=== PATIENT | female | born 1940 | race Caucasian/White ===

== ENCOUNTER → 2018-08-15 23:44 | Outpatient (REF) | payer MEDICARE, SELFPAY ==
[2018-08-16 00:13] LABS: Microscopic, Urine URINE MICROSCOPIC (MICROSCOPIC)
[2018-08-16 00:17] LABS: Appearance,Urine CLOUDY (Clear); Bilirubin,Urine Negative (Negative); Blood, Urine Negative (Negative); Color,Urine YELLOW (Yellow); Glucose,Urine (UA) Negative (Negative); Ketones,Urine Negative (Negative); Leukocyte Esterase,Urine Negative (Negative); Nitrate,Urine POSITIVE (Negative); Protein,Urine Negative (Negative); Specific Gravity, Urine 1.025 (1.005-1.030); Urobilinogen,Urine 0.2 EU/dl (0.2)
[2018-08-16 00:23] LABS: Bacteria,Urine 4+ /lpf
== END ==
LOC: LAB 23:44
PROVIDERS: Visit Provider Internal Medicine Adolescent Medicine
DX: N39.0 Urinary tract infection, site not specified (principal)
CPT/HCPCS: 81001; 87086; 87088; 87186

== ENCOUNTER → 2019-02-25 10:42 | Outpatient (CLI) | payer MEDICARE, SELFPAY ==
--- NOTE | 2019-02-25 10:53 | FL_ITS ---
FL barium swallow modified INDICATION: ITS.REASON: DYSPHAGIA. Difficulty swallowing with questionable aspiration history. TECHNIQUE & FINDINGS: Study performed conjunction with speech pathologist Bernie arambula. 1 minute 39 seconds fluoroscopy 5.44 MGY Patient study the lateral projection with video esophagram recording. Various barium consistencies utilized to study swallowing mechanism. Oral phase. Mild impairment. Patient also had difficulty determining appropriate amount of food and draped in place in her mouth which does present a safety concern. Pharyngeal phase. Penetration of thin and thick nectar liquids into the laryngeal vestibule. No cough. There is some mild impairment of epiglottic coverage of the airway contributing to the above. Thin barium from spoon cup, and with straw: Larger volume demonstrated penetration Larger volume [place] thick liquid also demonstrated penetration. However honey, pudding, puree consistencies were better tolerated with no notable penetration. IMPRESSION:. Patient demonstrated penetration into the laryngeal vestibule on with larger volume thin liquid and nectar liquid consistencies. However improvement was seen with honey consistency . Satisfactory swallowing with pudding and puree Please see review recommendations from speech pathology
--- NOTE | 2019-02-25 12:53 | HMH.SLMBS2 ---
Speech & Language Evaluation Speech/Language Mod Barium Swallow Start: 02/25/19 12:41 Freq: once Status: Complete Protocol: Document 02/25/19 12:41 MARSHA (Rec: 02/25/19 12:47 SARIBISIMINO [id number]) MBS Recommendations Diet Dietary Recommendations Pureed Honey Liquids Comment No straw Treatment/Strategies Strategy/Precaution Recommend Sitting Upright (90 deg) Mod Barium Swallow Impressions Summary and Impressions Oral Phase Impression Mild Impairment Oral Phase Summary edentulous; Pharyngeal Phase Impression Moderate Impairment Pharyngeal Phase Summary Penetration of think and nectar thick liquids; no cough . Speech/Language MBS Assessment/Goals/Plan Assessment Date of Evaluation: 02/25/19 Evaluation Type Initial Certification Assessment/Problems Dysphagia Does Patient Qualify for Service Yes Qualify/Failure Comment Speech therapy at [facility] should be consulted to determine therapy needs. Recommendations PHYSICIAN CERTIFICATION: The specified therapy services are required, authorized, and reviewed every 30 days. Diet Recommendations Dysphagia Pureed Liquid Type Recommendations Honey Consistency SL Swallow Guidelines High aspiration risk Dysphagia Swallow Precautions/Strategies Sitting Upright (90 deg) No Straw Small Bites and Sips Plan Pt/Guardian verbally ack understanding No of dx/prognosis/goals Pt/Guardian verbally ack understanding No of/consent to tx prog G -code Required Yes G-CODES ST Current Status [id number] ST Current Status Modifier CJ-At least 20% but less than 40% impaired, limited or restricted ST Goal Status [id number] ST Goal Status Modifier CJ-At least 20% but less than 40% impaired, limited or restricted Education Instructions provided Note was written to take back to [facility] by nursing clinical director that accompanied her today. Pt/Caregiver able to recall information Unable to ind. understand Reinforcement needed Yes Mod Barium Swallow Setup Exam Setup Radiologist Patel Alireza Level of Consciousness Awake Alert Disoriented Combative Restless Position (degrees) 90 Mod Barium Swallow-Lat View Oral Phase Labial Closure
== END ==
PROVIDERS: PCP Internal Medicine Adolescent Medicine; Visit Provider Internal Medicine Adolescent Medicine
DX: R13.10 Dysphagia, unspecified (principal)
CPT/HCPCS: 70371; 92611

== ENCOUNTER 2019-04-24 08:40 | Observation (INO) ==
--- NOTE | 2019-04-24 08:48 | Emergency Department Note ---
ED Disposition Clinical Impression: Altered mental status Qualifiers: Altered mental status type: unspecified Qualified Code(s): R41.82 - Altered mental status, unspecified UTI (urinary tract infection) Qualifiers: Urinary tract infection type: acute cystitis Hematuria presence: with hematuria Qualified Code(s): N30.01 - Acute cystitis with hematuria Disposition: Admitted as Observation Condition on Discharge: Good - Critical Care Critical Care Time: No Attestation: On , the high probability of a clinically significant, sudden or life threatening deterioration of the following system(s) required my full and direct attention, intervention and personal management. The time I documented below is in addition to time spent performing reported procedures but includes the f ollowing listed in this critical care notation. Medical Decision Making - Medical Records Medical records reviewed: Yes: I reviewed the patient's medical records. - [place] Inquiry Pt receiving controlled substance: No Vital Signs: 04/24/19 08:41 04/24/19 09:18 04/24/19 09:54 Temperature 98.0 F Temperature Source Oral Pulse Rate [Right Radial] 89 83 88 Respiratory Rate 18 18 Blood Pressure [Left Arm] 112/58 L Blood Pressure [Right Arm] 147/86 H 145/88 H Blood Pressure Mean [Left Arm] 76 Blood Pressure Mean [Right Arm] 106 107 Blood Pressure Source [Left Arm] Automatic Cuff Blood Pressure Source [Right Arm] Automatic Cuff Automatic Cuff Blood Pressure Position [Left Arm] Sitting Blood Pressure Position [Right Arm] Sitting Sitting 02 Sat by Pulse Oximetry 95 96 95 Oxygen Delivery Method Room Air Room Air Room Air 04/24/19 11:45 04/24/19 11:58 04/24/19 12:37 Temperature Temperature Source Pulse Rate [Right Radial] 90 Respiratory Rate Blood Pressure [Left Arm] 110/75 105/72 L Blood Pressure [Right Arm] Blood Pressure Mean [Left Arm] 86 83 Blood Pressure Mean [Right Arm] Blood Pressure Source [Left Arm] Automatic Cuff Automatic Cuff Blood Pressure Source [Right Arm] Blood Pressure Position [Left Arm] Supine Blood Pressure Position [Right Arm] 02 Sat by Pulse Oximetry 98 Oxygen Delivery Method Room Air - Lab Data Lab results reviewed: Yes: I reviewed the patient's lab results. Lab Results 04/24/19 09:25: WBC 7.6, RBC 4.44, Hgb 12.6, Hct 38.1, MCV 85.7, MCH 28.3, MCHC 33.0, RDW 13.9, Plt Count 293, MPV 6.9 L, Neut % (Auto) 79.3, Lymph % (Auto) 16.0, [place] % (Auto) 2.8, Eos % (Auto) 1.3, Baso % (Auto) 0.5, Neut # (Auto) 6.0, Lymph # (Auto) 1.2, [place] # (Auto) 0.2, Eos # (Auto) 0.1, Baso # (Auto) 0.0 04/24/19 09:25: Sodium 134 L, Potassium 4.1, Chloride 95 L, Carbon Dioxide 29, Anion Gap 14.1, BUN 18, Creatinine 0.79, Estimated Creat Clear 35, Estimated GFR 70, Est GFR ( Amer) 85, Glucose 111 H, Calcium 9.3, Total Bilirubin 0.4, AST 20, ALT 20, Alkaline Phosphatase 104, Troponin I < 0.02, Total Protein 8.5 H , Albumin 4.1, Globulin 4.4 H, Albumin/Globulin Ratio 0.9 L 04/24/19 09:25: PT 10.8, INR 1.04 04/24/19 09:50: Urine Color Yellow, Urine Appearance Cloudy, Urine pH 7.0, Ur Specific [place] 1.015, Urine Protein Trace, Urine Glucose (UA) Negative, Urine Ketones Negative, Urine Blood Trace-l, Urine Nitrate Positive, Urine Bilirubin Negative, Urine Urobilinogen 0.2, Ur Leukocyte Esterase 3+ A, Urine WBC Tntc, Ur Transition Epith Cell Occ, Ur Renal Epithelial Cell Occasional, Amorphous Sediment 4+, Urine Bacteria 4+, Hyaline Casts Occasional Result diagrams: 04/24/19 09:25 04/24/19 09:25 Orders (Tests/Meds): ED MEDICATIONS Discontinued Medications Generic Name Dose Route Start Last Admin Trade Name Freq PRN Reason Stop Dose Admin Ceftriaxone Sodium 1,000 mg 04/24/19 10:48 04/24/19 11:37 Rocephin 250mg Vial IM 04/24/19 10:49 1,000 mg ONCE ONE Administration Protocol Haloperidol Lactate 2 mg 04/24/19 10:47 04/24/19 10:55 Haldol 5mg/Ml Vial IM 04/24/19 10:48 2 mg ONCE ONE Administration Lidocaine HCl 0.9 ml 04/24/19 10:48 04/24/19 11:37 Lidocaine 1% 10ml Mdv IM 04/24/19 10:49 2.1 mg ONCE ONE Administration Lorazepam 1 mg 04/24/19 10:47 04/24/19 10:56 Ativan 2mg/Ml Vial IM 04/24/19 10:48 1 mg ONCE ONE Administration ORDERS Category Date Time Status Urine Culture Stat Micro 04/24/19 09:50 Received - Radiology Data #1 Image(s): Chest Image Reviewed: Yes I have reviewed radiologist's interpretation - CT Data CT Scan: Head Time Received: 12:46 (dilated ventricles, no bleed) ED CT Reviewed: Yes: I have viewed the radiologist's interpretation Medical Decision Narrative: Dr Bacon at [facility] accepts the pt transfer pending bed availability for eval of [employer]ELOP[employer]ECUTIVE shunt for normopressure hydrocephalus uti and ams, Dr Calvo admits f or obs pending transfer General Adult HPI - General Stated complaint: garbled speech Time Seen by Provider: 04/24/19 08:45 Mode of Arrival: EMS Source of Information: Patient, EMS - History of Present Illness HPI narrative: [place] pt hx brain bleed found with confusion today of unknown duration, no injury, no fever, poor historian - Related Data Home Medications Medication Instructions Recorded Confirmed Aspirin [Aspir 81] 81 mg PO DAILY 05/25/18 01/16/19 LORazepam [Ativan] 0.5 mg PO DAILY 05/25/18 01/16/19 OXcarbazepine [Trileptal 150mg 150 mg PO BID 05/25/18 01/16/19 tablet] Polyethylene Glycol 3350 [Miralax 17 gm PO DAILY 05/25/18 01/16/19 17gm Packet] Quetiapine Fumarate [Seroquel 25mg 75 mg PO HS 05/25/18 01/16/19 tablet] Sertraline HCl [Zoloft 100mg 200 mg PO HS 05/25/18 01/16/19 tablet] Acetaminophen 500 mg PO TID 01/16/19 01/16/19 Cholecalciferol (Vitamin D3) 2,000 unit PO DAILY 01/16/19 01/16/19 [Vitamin D3] Gabapentin [Gabapentin 100mg Cap] 100 mg PO BID 02/22/19 02/22/19 Sennosides [Senna] 8.6 mg PO DAILY 01/16/19 01/16/19 Allergies Allergy/AdvReac Type Severity Reaction Status Date / Time No Known Allergies Allergy Verified 01/16/19 22:51 [facility] History - Hepatitis A Screen Attestation statement:: This patient has been screened for Hepatitis A risk factors. Medical History: Denies:: Cancer, Diabetes Mellitus Type 1, Diabetes Mellitus Type 2, MRSA Amputation: No Fractures: Yes (left femur) - Social History Alcohol Intake: never ROS Obtained: Yes Systems reviewed as appropriate & no additional complaints - Constitutional Constitutional: Denies fever(s) - Eyes Eyes: Denies change in vision - ENT Ears, Nose, Mouth, and Throat: Denies headache(s) - Cardiovascular Cardiovascular: Denies chest pain - Respiratory Respiratory: No dyspnea - Gastrointestinal Gastrointestingal: Denies: abdominal pain - Musculoskeletal Musculoskeletal: Denies neck pain - Integumentary/Breasts Skin/Breast: Denies rash - Neurologic Neurologic: Denies abnormal movements, Denies abnormal speech Physical Exam - General General appearance: alert, in no apparent distress - Head Head exam: atraumatic - Eye Eye exam: Present: PERRL, EOMI - ENT ENT exam: Present: mucous membranes moist - Neck Neck exam: Present: normal inspection - Chest Chest inspection: Present: normal inspection - Respiratory Respiratory exam: Present: normal lung sounds bilaterally - Cardiovascular Cardiovascular exam: Present: regular rate, normal rhythm - Abdominal Exam Abdominal exam: Present: soft. Absent: tenderness - Extremities Exam Extremities exam: Absent: pedal edema - Back Exam Back exam: Absent: vertebral tenderness - Neurological Exam Neurological exam: Present: alert, other (gripa equal). Absent: oriented X3 - Psychiatric Psychiatric exam: Present: flat affect
[2019-04-24 09:42] LABS: Basophils % 0.5 % (0.1-2.0); Eosinophils # 0.1 K/mm3 (0.0-0.4); Eosinophils % 1.3 % (0.1-12.0); Hematocrit 38.1 % (37.0-47.0); Hemoglobin 12.6 g/dL (12.2-16.2); Lymphocytes # 1.2 K/mm3 (0.7-4.5); Mean Corpuscular Hemoglobin 28.3 pg (27.0-31.2); Mean Corpuscular Volume 85.7 fl (81-99); Mean Platelet Volume 6.9 fl (7.4-10.4); Monocytes # 0.2 K/mm3 (0.1-1.0); Monocytes % 2.8 % (1.7-9.3); Neutrophils % 79.3 % (37.0-80.0); Platelet Count 293 K/mm3 (142-424); Red Blood Count 4.44 M/mm3 (4.20-5.40); Red Cell Distribution Width 13.9 % (11.5-17.5); White Blood Count 7.6 K/mm3 (4.8-10.8)
[2019-04-24 09:49] LABS: INR 1.04 (0.9-1.1); Prothrombin Time 10.8 seconds (9.4-11.8)
[2019-04-24 09:53] LABS: Microscopic, Urine URINE MICROSCOPIC (MICROSCOPIC)
[2019-04-24 09:57] LABS: Appearance,Urine CLOUDY (Clear); Bilirubin,Urine Negative (Negative); Blood, Urine TRACE-L (Negative); Color,Urine YELLOW (Yellow); Glucose,Urine (UA) Negative (Negative); Ketones,Urine Negative (Negative); Leukocyte Esterase,Urine 3+ (Negative); Protein,Urine TRACE (Negative); Specific Gravity, Urine 1.015 (1.005-1.030); Urobilinogen,Urine 0.2 EU/dl (0.2)
[2019-04-24 10:07] LABS: Alanine Aminotransferase 20 U/L (12-78); Albumin Level 4.1 gm/dL (3.4-5.0); Albumin/Globulin Ratio 0.9 (1.1-1.8); Alkaline Phosphatase 104 U/L (46-116); Anion Gap 14.1 mEq/L (5-15); Aspartate Amino Transferase 20 U/L (15-37); Bilirubin,Total 0.4 mg/dL (0.2-1.0); Blood Urea Nitrogen 18 mg/dL (7-18); Calcium 9.3 mg/dL (8.5-10.1); Carbon Dioxide 29 mmol/L (21.0-32.0); Chloride 95 mmol/L (98-107); Globulin 4.4 gm/dl (1.3-3.2); Glucose 111 mg/dL (74-106); Potassium 4.1 mmoL/L (3.5-5.1); Sodium 134 mmol/L (136-145); Total Protein,Serum 8.5 gm/dL (6.4-8.2)
[2019-04-24 10:14] LABS: Amorphous Sediment,Urine 4+ /lpf; Bacteria,Urine 4+ /lpf; Hyaline Casts,Urine Occasional #/lpf (0); Transitional Epi Cells,Urine OCC #/lpf (0-3); WBC,Urine TNTC #/hpf (0-3)
[2019-04-24 10:15] LABS: Renal Epithelial Cells,Urine Occasional #/lpf (0)
--- NOTE | 2019-04-24 13:52 | Pharmacy Consult Notes ---
[facility] Pharmacy VTE Monitoring - Patient Demographics Admission date: 04/24/19 Report Date: 04/24/19 Time: 13:51 Allergies/Adverse Reactions: Patient Allergies No Known Allergies Allergy (Verified 01/16/19 22:51) Height: 1.68 m Weight: 49.895 kg Patient Problems: Current Active Problems (Updated 04/24/19 @ 12:49 by Davey Christopher MD) UTI (urinary tract infection) (Acute) Altered mental status (Acute) - VTE Risk Labs: VTE Related Lab Results Hgb 12.6 g/dL (12.2-16.2) 04/24/19 09:25 Hct 38.1 % (37.0-47.0) 04/24/19 09:25 Plt Count 293 K/mm3 (142-424) 04/24/19 09:25 PT 10.8 seconds (9.4-11.8) 04/24/19 09:25 INR 1.04 (0.9-1.1) 04/24/19 09:25 BUN 18 mg/dL (7-18) 04/24/19 09:25 Creatinine 0.79 mg/dL (0.55-1.02) 04/24/19 09:25 Estimated Creat Clear 35 mL/min (50-200) 04/24/19 09:25 - Prophylaxis VTE Prophylaxis Ordered?: Yes Types of VTE Prophylaxis: TEDS Knee High Location of Applied Device: Bilateral Lower Extremeties - VTE Diagnosis Confirmed Treatment or plan recommended: Continue Current Treatment
--- NOTE | 2019-04-25 07:13 | H&P/Discharge Summary ---
General - General Admission date:: 04/24/19 Discharge date: 04/25/19 *Admission Date: 04/24/19 *Chief complaint: Mental status changes *History of present illness: 79-year-old white female, long-term senior care resident, who has been afflicted with multiple falls in the past and has multiple episodes of intracerebral hemorrhages-with multiple admissions at [facility] neurosurgery, who have again and again recommended nonoperative intervention, who has been a long-term resident of [facility] and has maintained a DNR status-was sent to the ER because of "speech changes." In the ER she was active, disoriented and somewhat combative, CT scan showed suspicion of normal pressure hydrocephalus and the ER doctor actually called the neurosurgery service/hospitalist service at [facility] and she was accepted there tentatively for admission but they were full and so we were asked to admit her for observation here until bed was available. When I examined her she is absolutely no different from her baseline. I reviewed her CT scan and the results are noted below from the radiology report:. FINDINGS: No midline shift, mass effect, intracranial hemorrhage, hydrocephalus, or extra-axial fluid collection is evident. There is generalized atrophy with periventricular ischemic gliotic change. Encephalomalacia changes present in the left occipital lobe and right frontal lobe. There is prominence of the ventricles somewhat out of context to the degree of atrophy which may indicate pressure/communicating hydrocephalus. Previously noted intraparenchymal and intraventricular hemorrhage has resolved. No sinus air-fluid level or mastoid effusion. IMPRESSION: 1. No acute intracranial hemorrhage. 2. Atrophy with prominence of the ventricular system raising the question of normal pressure hydrocephalus Given the low likelihood of actually symptomatic/treatable normal pressure hydrocephalus I admitted patient observation here overnight for further neurologic checks. [facility] History I have reviewed the patient's past medical history: Yes Medical History: Denies:: Cancer, Diabetes Mellitus Type 1, Diabetes Mellitus Type 2, MRSA *Have you ever received a pneumonia vaccine?: Yes *Have you received a flu vaccine this season?: Yes Amputation: No Fractures: Yes (left femur) - *Social History Alcohol Intake: never *Occupational Status:: other Housing: senior care *Travel in the last 8 weeks: None - Psychiatric History Expresses thoughts of harming self/others: None Suicide Plan Description: No Plan Family Hx:: Unable to obtain Review of Systems - Review of Systems Review of systems:: unable to obtain - *Neurologic Denies abnormal movements, Denies abnormal speech, Denies headache(s) Exam Vital signs and Labs for Last 24 Hours: Temp Pulse Resp BP Pulse Ox 97.5 F L 79 17 126/75 92 L 04/25/19 04:00 04/25/19 04:00 04/25/19 04:00 04/25/19 04:00 04/25/19 04:00 Laboratory Results - last 24 hr 04/24/19 09:25: WBC 7.6, RBC 4.44, Hgb 12.6, Hct 38.1, MCV 85.7, MCH 28.3, MCHC 33.0, RDW 13.9, Plt Count 293, MPV 6.9 L, Neut % (Auto) 79.3, Lymph % (Auto) 16.0, [place] % (Auto) 2.8, Eos % (Auto) 1.3, Baso % (Auto) 0.5, Neut # (Auto) 6.0, Lymph # (Auto) 1.2, [place] # (Auto) 0.2, Eos # (Auto) 0.1, Baso # (Auto) 0.0 04/24/19 09:25: Sodium 134 L, Potassium 4.1, Chloride 95 L, Carbon Dioxide 29, Anion Gap 14.1, BUN 18, Creatinine 0.79, Estimated Creat Clear 35, Estimated GFR 70, Est GFR ( Amer) 85, Glucose 111 H, Calcium 9.3, Total Bilirubin 0.4, AST 20, ALT 20, Alkaline Phosphatase 104, Troponin I < 0.02, Total Protein 8.5 H , Albumin 4.1, Globulin 4.4 H, Albumin/Globulin Ratio 0.9 L 04/24/19 09:25: PT 10.8, INR 1.04 04/24/19 09:50: Urine Color Yellow, Urine Appearance Cloudy, Urine pH 7.0, Ur Specific [place] 1.015, Urine Protein Trace, Urine Glucose (UA) Negative, Urine Ketones Negative, Urine Blood Trace-l, Urine Nitrate Positive, Urine Bilirubin Negative, Urine Urobilinogen 0.2, Ur Leukocyte Esterase 3+ A, Urine WBC Tntc, Ur Transition Epith Cell Occ, Ur Renal Epithelial Cell Occasional, Amorphous Sediment 4+, Urine Bacteria 4+, Hyaline Casts Occasional I & O for Last 24 hours: Intake & Output 04/22/19 04/23/19 04/24/19 04/25/19 11:59 11:59 11:59 11:59 Intake Total 259 / 259 Balance 259 / 259 Weight 110 lb 106 lb 2 oz Microbiology Reports for the Last 24 Hours: Microbiology 04/24/19 09:50 Urine,Clean Catch Urine Culture - Preliminary Gram Negative Rods Narrative: Patient is talkative, will follow commands but is clearly demented, nonsensical/run on/tangential sentences but this is exactly her baseline. She has no speech slurring. Cranial nerves are intact. Peripheral neurologic exam is difficult because of her ability to follow detailed commands. However she has no evidence of asymmetry of movement of her extremities. Heart rate regular. Lungs are clear and well-expanded, abdomen soft and nontender. Oropharynx is moist, edentulous, no lesions. Hospital Course Hospital Course: Patient was admitted, regular senior care medications were maintained. Patient slept comfortably through the night. This morning has no complaints, her exam is unchanged. Her power of prosecuting attorney/family has confirmed her DNR status. This patient is clearly a nonoperative candidate for invasive neurosurgical procedures of any kind. I recommend transfer back to the senior care, and resume palliative care as was previously done when she was admitted initially to the senior care for intracerebral hemorrhage. Results Labs on day of discharge: Labs from last 24 hours 04/24/19 04/24/19 04/24/19 09:50 09:25 09:25 WBC RBC Hgb Hct MCV MCH MCHC RDW Plt Count MPV Neut % (Auto) Lymph % (Auto) [place] % (Auto) Eos % (Auto) Baso % (Auto) Neut # (Auto) Lymph # (Auto) [place] # (Auto) Eos # (Auto) Baso # (Auto) PT 10.8 INR 1.04 Sodium 134 L Potassium 4.1 Chloride 95 L Carbon Dioxide 29 Anion Gap 14.1 BUN 18 Creatinine 0.79 Estimated Creat Clear 35 Estimated GFR 70 Est GFR ( Amer) 85 Glucose 111 H Calcium 9.3 Total Bilirubin 0.4 AST 20 ALT 20 Alkaline Phosphatase 104 Troponin I < 0.02 Total Protein 8.5 H Albumin 4.1 Globulin 4.4 H Albumin/Globulin Ratio 0.9 L Urine Color Yellow Urine Appearance Cloudy Urine pH 7.0 Ur Specific [place] 1.015 Urine Protein Trace Urine Glucose (UA) Negative Urine Ketones Negative Urine Blood Trace-l Urine Nitrate Positive Urine Bilirubin Negative Urine Urobilinogen 0.2 Ur Leukocyte Esterase 3+ A Urine WBC Tntc Ur Transition Epith Cell Occ Ur Renal Epithelial Cell Occasional Amorphous Sediment 4+ Urine Bacteria 4+ Hyaline Casts Occasional 04/24/19 09:25 WBC 7.6 RBC 4.44 Hgb 12.6 Hct 38.1 MCV 85.7 MCH 28.3 MCHC 33.0 RDW 13.9 Plt Count 293 MPV 6.9 L Neut % (Auto) 79.3 Lymph % (Auto) 16.0 [place] % (Auto) 2.8 Eos % (Auto) 1.3 Baso % (Auto) 0.5 Neut # (Auto) 6.0 Lymph # (Auto) 1.2 [place] # (Auto) 0.2 Eos # (Auto) 0.1 Baso # (Auto) 0.0 PT INR Sodium Potassium Chloride Carbon Dioxide Anion Gap BUN Creatinine Estimated Creat Clear Estimated GFR Est GFR ( Amer) Glucose Calcium Total Bilirubin AST ALT Alkaline Phosphatase Troponin I Total Protein Albumin Globulin Albumin/Globulin Ratio Urine Color Urine Appearance Urine pH Ur Specific [place] Urine Protein Urine Glucose (UA) Urine Ketones Urine Blood Urine Nitrate Urine Bilirubin Urine Urobilinogen Ur Leukocyte Esterase Urine WBC Ur Transition Epith Cell Ur Renal Epithelial Cell Amorphous Sediment Urine Bacteria Hyaline Casts Preliminary micro results at discharge 04/24/19 09:50 Urine Culture - Preliminary Urine,Clean Catch Gram Negative Rods DS: Diagnosis - Discharge Diagnosis (1) Altered mental status Status: Acute (2) DNR (do not resuscitate) Status: Acute (3) Dementia Status: Acute Discharge Medications - Medications for Discharge Home Medication List at Discharge: Continued Sertraline HCl [Zoloft 100mg tablet] 100 mg PO HS Polyethylene Glycol 3350 [Miralax 17gm Packet] 17 gm PO DAILY Acetaminophen 500 mg PO TID Gabapentin [Gabapentin 100mg Cap] 100 mg PO BID Cholecalciferol (Vitamin D3) [Vitamin D3] 2,000 unit PO DAILY Ascorbate Calcium [Vitamin C] 500 mg PO BID Acetaminophen 1,000 mg PO Q6HP PRN PRN Reason: PAIN OR FEVER OXcarbazepine [Trileptal 150mg tablet] 150 mg PO BID Sennosides [Senna] 2 tab PO DAILY Miscellaneous [Unknown Home Medication] 12 % TOPICAL BID Bisacodyl [Bisacodyl 10mg Supp] 10 mg RC DAILYP PRN PRN Reason: Constipation Disposition Disposition: Xfer SNF
== END 2019-04-25 08:50 ==
LOC: ER 08:40 → 2ND 08:40
PROVIDERS: ADMIT Internal Medicine Adolescent Medicine; ATTEND Internal Medicine Adolescent Medicine
DX: Z79.82 Long term (current) use of aspirin; R41.82 Altered mental status, unspecified; Z91.81 History of falling; Z66 Do not resuscitate; N30.01 Acute cystitis with hematuria; F03.90 Unspecified dementia, unspecified severity, without behavioral disturbance, psychotic disturbance, mood disturbance, and anxiety; R47.89 Other speech disturbances; Z86.69 Personal history of other diseases of the nervous system and sense organs; Z79.899 Other long term (current) drug therapy
CPT/HCPCS: 36415; 70450; 71010; 71045; 80053; 81001; 84484; 85025; 85610; 87086; 87088; 87186; 96372; 99284; G0378